=== PATIENT | female | born 1965 | race Caucasian/White ===

== ENCOUNTER 2016-11-30 15:56 | Inpatient (IN) | payer BC ==
[2016-11-30] MEDS ORDERED: Albuterol-Ipratrop 3 mg / 0.5 (3 ml) UD IH STA ×3 (16:10→16:11)
--- NOTE | 2016-11-30 16:39 | RAD ---
HISTORY: cough/sob/copd COMPARISON: 12/10/2014. FINDINGS: LUNGS: The lungs are well inflated and clear. PLEURA: No significant pleural effusion identified, no pneumothorax apparent. CARDIOVASCULAR: Normal. OSSEOUS STRUCTURES: No significant abnormalities. VISUALIZED UPPER ABDOMEN: Normal. OTHER FINDINGS: None. IMPRESSION: No active pulmonary disease.
[2016-11-30 16:50] LABS: BASO # 0.01 K/mm3 (0.0-2.0); BASO % 0.1 % (0.0-3.0); EOS # 0.2 (0.0-0.7); EOS % 2.2 % (1.5-5.0); GRAN # 2.55 (1.4-6.5); GRAN % 32.3 % (50.0-68.0); HEMATOCRIT 37.5 % (36.0-48.0); LYMPH # 4.4 (1.2-3.4); LYMPH % 56.3 % (22.0-35.0); MEAN CELL VOLUME 87.2 fl (80.0-105.0); MEAN CORPUSCULAR HEMOGLOBIN 30.2 pg (25.0-35.0); MEAN CORPUSCULAR HGB CONC 34.7 g/dl (31.0-37.0); MEAN PLATELET VOLUME 8.9 fl (7.0-11.0); MONO # 0.7 (0.1-0.6); MONO % 9.1 % (1.0-6.0); WHITE BLOOD COUNT 7.9 10^3/ul (4.5-11.0)
[2016-11-30 16:52] LABS: ALB/GLOB RATIO 1.9 (1.1-1.8); ALKALINE PHOSPHATASE 87 U/L (38-126); ALT/SGPT 39 U/L (7-56); AST/SGOT 35 U/L (14-36); BILIRUBIN,TOTAL 0.4 mg/dL (0.2-1.3); BLOOD UREA NITROGEN 18 mg/dL (7-21); CALCIUM 8.9 mg/dL (8.4-10.5); CARBON DIOXIDE 26 mmol/L (21-33); CHLORIDE 105 mmol/L (98-107); GFR AFRICAN-AMERICAN > 60; GLUCOSE,RANDOM 79 mg/dL (70-110); LIPASE 113 U/L (23-300); POTASSIUM 4.1 mmol/L (3.6-5.0); SODIUM 142 mmol/L (132-148); TOTAL PROTEIN 6.6 g/dL (5.8-8.3)
[2016-11-30] MEDS ORDERED: Magnesium Sulfate 1 gm in D5W 1 GM/100 ML BAG IVPB ONE (17:09)
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
[2016-11-30] MEDS ORDERED: cefTRIAXone (Rocephin) 1 gm Inj IM STA (21:00)
[2016-11-30] MEDS: MethylPREDNISolone 40 mg Vial IVP SCH (21:55)
[2016-11-30] MEDS ORDERED: Fluticasone-Salmeterol 500-50mcg Diskus IH SCH (22:00)
[2016-11-30] MEDS ORDERED: cefTRIAXone 1 gm 1 GM/100 ML BAG IVPB STA (22:16)
[2016-12-01] MEDS ORDERED: Albuterol-Ipratrop 3 mg / 0.5 (3 ml) UD IH SCH (02:00)
--- NOTE | 2016-12-01 03:59 | CON ---
DATE: 11/30/2016 PULMONARY CONSULT REFERRING PHYSICIAN: Dr. Ramirez. REASON FOR CONSULT: Chronic obstructive lung disease, cough, shortness of breath, ulcer, and epigastric pain. HISTORY OF PRESENT ILLNESS: This is a 51 years old female with a past medical history significant for chronic obstructive lung disease, also history of asthma, chronic pancreatitis, gastritis, hypertension, history of excessive alcohol use, comes into the emergency room with abdominal pain, cough and shortness of breath. Denied any fever. No chills, No hemoptysis. No hematemesis. No hematuria. No diarrhea reported. PAST MEDICAL HISTORY: Chronic obstructive lung disease, chronic pancreatitis, history of C. diff colitis, hypertension, history of excessive alcohol use. ALLERGIES: TO CIPRO AND SHELLFISH. MEDICATIONS: She is on Brovana inhaled twice a day, DuoNeb q. 6 hours p.r.n., Lexapro 30 mg daily, Nicoderm patch daily, Pepcid 40 mg daily, Pulmicort inhale twice a day, Solu-Medrol 40 mg q. 12 hours, Tylenol p.r.n., and Zofran p.r.n. basis. FAMILY HISTORY: Nonsignificant for cardiopulmonary disease reported. SOCIAL HISTORY: Active smoker, excessive alcohol use. REVIEW OF SYSTEMS: No headache. No rhinitis. Has a mild cough and shortness of breath, epigastric pain. No dysuria. No leg pain or leg swelling. PHYSICAL EXAMINATION GENERAL: Lying in the bed, mild distress secondary to abdominal pain. VITAL SIGNS: Temperature is 98, heart rate is 99, respiratory rate is 20, blood pressure is 132/70, and pulse oximetry is 96% on room air. HEENT: Moist mucous membrane. Crowded airway. NECK: Supple. No JVD. LUNGS: Scattered rhonchi. HEART: S1 and S2. ABDOMEN: Positive bowel sounds. Epigastric tenderness. EXTREMITIES: There is no edema. NEUROLOGIC: Awake, alert and follows simple commands. LABORATORY DATA: Shows hemoglobin 13.0, hematocrit 37.5, WBC 7.9, platelet count is 326. INR 0.97, PTT 27. Sodium 142, potassium 4.1, chloride 105, bicarbonate 26, BUN 18, creatinine 0.7, glucose 79, calcium is 8.9, AST is 35, ALT 39, alk phos is 87, albumin is 4.3, lipase 113, TSH 3.79, alcohol level less than 10. Chest x-ray done today shows no active infiltrates. IMPRESSION AND PLAN: Chronic pancreatitis, may have gastritis, chronic obstructive lung disease, history of colitis, hypertension, excessive alcohol use. I spoke to the patient in detail, urged her to stop smoking and stop excessive alcohol use. We will add IV and inhaled bronchodilator. Pain medications, n.p.o. for now. GI consult. Thiamine 100 mg daily, may use Ativan p.r.n. basis, gastric prophylaxis, SCDs to lower extremities. Follow up labs in the morning. Thank you and we will follow with you. Marleny Garcia MD
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
[2016-12-01 04:26] VITALS: BMI 26.6
[2016-12-01 06:33] LABS: HEMATOCRIT 37.9 % (36.0-48.0); MEAN CELL VOLUME 86.7 fl (80.0-105.0); MEAN CORPUSCULAR HEMOGLOBIN 30.2 pg (25.0-35.0); MEAN CORPUSCULAR HGB CONC 34.8 g/dl (31.0-37.0); RED CELL DISTRIBUTION WIDTH 13.8 % (11.5-14.5); WHITE BLOOD COUNT 6.3 10^3/ul (4.5-11.0)
[2016-12-01 06:40] LABS: BLOOD UREA NITROGEN 22 mg/dL (7-21); CALCIUM 9.3 mg/dL (8.4-10.5); CARBON DIOXIDE 25 mmol/L (21-33); CHLORIDE 106 mmol/L (98-107); CHOLESTEROL 175 mg/dL (130-200); GFR AFRICAN-AMERICAN > 60; GLUCOSE,RANDOM 133 mg/dL (70-110); POTASSIUM 4.4 mmol/L (3.6-5.0); SODIUM 141 mmol/L (132-148)
[2016-12-01] MEDS ORDERED: Barium Sulfate Susp 2.1% w/v, 2.0% w/w 450 mL Bottle PO ONE (07:26)
[2016-12-01] MEDS: Budesonide 0.5 mg/2 ml Inhal Susp UD IH SCH ×2 (08:33→19:34)
[2016-12-01] MEDS: Arformoterol 15 mcg/2 ml Inh Sol IH SCH ×2 (08:37→19:35)
[2016-12-01] MEDS: MethylPREDNISolone 40 mg Vial IVP SCH ×2 (09:26→21:41)
[2016-12-01] MEDS: Enoxaparin 30 mg Syringe SC SCH (09:27)
[2016-12-01] MEDS ORDERED: Iohexol 300 100 ML IJ ONE (10:52)
[2016-12-01] MEDS ORDERED: Oxycodone/Acetaminophen 5/325 mg Tab PO ONE (11:20)
--- NOTE | 2016-12-01 12:31 | CT ---
PROCEDURE: CT Abdomen and Pelvis with contrast HISTORY: pancreatitis COMPARISON: None. TECHNIQUE: Contrast dose: 100 cc of Visipaque Radiation dose: Total exam DLP = 311 mGy-cm. This CT exam was performed using one or more of the following dose reduction techniques: Automated exposure control, adjustment of the mA and/or kV according to patient size, and/or use of iterative reconstruction technique. FINDINGS: LOWER THORAX: Unremarkable. LIVER: Unremarkable. No gross lesion or ductal dilatation. GALLBLADDER AND BILE DUCTS: Unremarkable. PANCREAS: Unremarkable. No gross lesion or ductal dilatation. SPLEEN: Unremarkable. ADRENALS: Unremarkable. No mass. KIDNEYS AND URETERS: Unremarkable. No hydronephrosis. No solid mass. VASCULATURE: Unremarkable. No aortic aneurysm. BOWEL: Unremarkable. No obstruction. No gross mural thickening. APPENDIX: Normal appendix. PERITONEUM: Unremarkable. No free fluid. No free air. LYMPH NODES: Unremarkable. No enlarged lymph nodes. BLADDER: Unremarkable. REPRODUCTIVE: Unremarkable. BONES: No acute fracture. OTHER FINDINGS: None. IMPRESSION: No acute findings. No evidence of pancreatitis
--- NOTE | 2016-12-01 15:45 | PN ---
PULMONARY PROGRESS NOTE REFERRING PHYSICIAN: Dr. Ramirez. SUBJECTIVE: The patient is lying in the bed, head at 45 degrees, and night was unremarkable; still have some abdominal pain, requesting Dilaudid for pain. No cough. No sputum production. No leg pain. No leg swelling. OBJECTIVE: GENERAL: In no acute distress. VITAL SIGNS: Temperature is 98, heart rate is 60, respiratory rate is 20, blood pressure 139/80, pulse ox 99% on room air. HEENT: Moist mucous membranes. No oral thrush noted. NECK: Supple. No JVD. LUNGS: Have fair airflow with rhonchi. HEART: S1 and S2. ABDOMEN: Positive bowel sound, soft; has epigastric tenderness. EXTREMITIES: There is no edema. NEUROLOGIC: Awake, alert, and follows simple commands. MEDICATIONS: She is on Brovana 15 mcg inhaled twice a day, Lexapro 30 mg daily, Lovenox 30 mg subQ daily, Nicoderm patch daily, Pepcid 40 mg daily, Pulmicort inhale twice a day, Solu-Medrol 40 mg q. 12 hours, Tylenol p.r.n. basis, vitamin B 100 mg daily, and Zofran p.r.n. basis. LABORATORY DATA: Shows hemoglobin 13.2, hematocrit 37.9, WBC is 6.3, platelet count is 330. Sodium 140, potassium 4.4, chloride 105, bicarbonate 25, BUN 22, creatinine 0.7. Hemoglobin A1c 5.8, calcium is 9.3, triglyceride 59, cholesterol is 175, TSH 0.47. Has a CAT scan of the abdomen and pelvis done which showed no acute finding, no evidence of pancreatitis. IMPRESSION AND PLAN: Chronic obstructive lung disease, history of chronic pancreatitis, may have a gastritis; history of colitis, hypertension, history of alcohol abuse. The patient requesting Dilaudid. Clinically, my feeling is she may be drug seeking behavior. Pulmonary point of view, I will decrease Solu-Medrol; continue inhaled bronchodilator; continue Nicoderm patch; continue thiamine, gastric prophylaxis, SCDs to lower extremities. May need GI consult. Thank you and we will follow up with you. Marleny Garcia MD [facility] # [id number]
--- NOTE | 2016-12-02 02:23 | PN ---
DATE: SUBJECTIVE: The patient is a 51-year-old female. The patient is seen and examined at the bedside, looking comfortable. No nausea, vomiting or diarrhea. Cough is better. Shortness of breath is better. Sometimes complaining about abdominal pain and asking for the Dilaudid for pain. No swelling of the leg. No chest pain. No fever, no chills. PHYSICAL EXAMINATION: VITAL SIGNS: Temperature 98. heart rate 50, respiratory rate 20, blood pressure 137/80, pulse oximetry is 99%. HEENT: Normocephalic, atraumatic. Eyes; PERRLA. Extraocular muscles are intact. Conjunctivae are clear. Mucous membrane moist. Nose is patent. NECK: Supple. No carotid bruits. No JVD or thyromegaly. CHEST: Bilaterally symmetrical. HEART: S1 and S2 positive. LUNGS: Clear to auscultation. ABDOMEN: Soft. Bowel sounds positive. No organomegaly. EXTREMITIES: No edema. No cyanosis. NEUROLOGIC: The patient is awake and alert. Moving all four extremities. No focal deficit. MEDICATIONS: Brovana, Lexapro, Lovenox, Nicoderm, Pepcid, Pulmicort, Solu-Medrol, Tylenol 100, and Zofran. LABORATORY DATA: Hemoglobin 13.2, hematocrit 37.9, white blood cells 6.3, platelets 330. Sodium 140, potassium 4.4, BUN 32, creatinine 0.7, hemoglobin A1c is 5.8. Triglycerides noted . CAT scan of the abdomen and pelvis done, showed no acute findings. No evidence of pancreatitis. ASSESSMENT AND PLAN: Ms. Shanell Del Valle is a 51-year-old female with chronic obstructive lung disease, history of chronic pancreatitis, rule out gastritis, history of colitis, hypertension, history of alcohol abuse. Came in to [facility] as the patient has chronic lung disease, requesting Dilaudid for abdominal pain. CAT scan of the abdomen done, no acute findings. Getting decreasing dose of Solu-Medrol, Nicoderm patch, thiamine, gastric prophylaxis, SCDs to the lower extremities. Follow GI consult with Dr. Cullen to justify Dilaudid for abdominal pain; otherwise, I will stop Dilaudid. We will follow up. Niki Ramirez MD [facility]
--- NOTE | 2016-12-02 05:41 | CON ---
DATE: 12/01/2016 HISTORY OF PRESENT ILLNESS: This patient was seen and evaluated earlier. This 51-year-old patient with a past medical history of COPD, asthma, history of peptic ulcer disease, chronic back pain, history of pancreatitis, history of substance abuse presented with worsening of the shortness of breath and cough for the past 4 weeks. The patient also complaining of the epigastric discomfort during that period. No diarrhea. History of nausea present intermittently. No fever. GI consult was requested to evaluate her abdominal discomfort. Pain mainly in the upper abdominal area. OTHER PAST MEDICAL HISTORY: Significant as above, history of hypertension, status post appendicectomy, tubal ligation. FAMILY HISTORY: Noncontributory. SOCIAL HISTORY: Positive for smoking and alcohol. Positive for substance abuse, heroin in the past. ALLERGIES: THE PATIENT IS ALLERGIC TO CIPRO AND SHELLFISH. REVIEW OF SYSTEMS: Positive as above. Other systems reviewed, negative. PHYSICAL EXAMINATION: GENERAL: The patient is lying on the bed, not in acute distress. VITAL SIGNS: Temperature 98.5, blood pressure 132/67, pulse 80, respirations 20. HEENT: Atraumatic, anicteric. NECK: Supple. HEART: S1 and S2 heard. LUNGS: Bilateral air entry present. Breathing with rhonchi present, scattered. EXTREMITIES: No edema. No cyanosis. NEUROLOGIC: Alert, oriented. Moves all the extremities LABORATORY DATA: Hemoglobin 13.2, hematocrit 39.9, WBC 6.3, platelets 330. Chemistry is essentially unremarkable. The patient had a CT of the abdomen and pelvis done which was reviewed; no acute findings noticed, otherwise. The CT was done. No evidence of pancreatitis noticed. IMPRESSION: This is a 51-year-old patient admitted with exacerbation of chronic obstructive pulmonary disease, asthma, admitted with abdominal pain also, history of multiple admissions in the past on review of the old records, history peptic ulcer disease, and history of pancreatitis in the past. CT did not show any acute pancreatitis at the present time. The differential diagnosis should still include pancreatitis, peptic ulcer disease, erosive esophagitis to be considered. RECOMMENDATIONS: I would recommend; 1. High-dose PPI. 2. Carafate 1 g p.o. q.i.d. 3. We will request for an ultrasound scan of the abdomen to further evaluate. Thank you very much allowing us to participate in the care of the patient. We would suggest further recommendations based on the clinical course. Keshia Cullen MD [facility]
[2016-12-02] MEDS: Arformoterol 15 mcg/2 ml Inh Sol IH SCH ×2 (08:04→20:16)
[2016-12-02] MEDS: Budesonide 0.5 mg/2 ml Inhal Susp UD IH SCH ×2 (08:04→20:16)
[2016-12-02] MEDS: Enoxaparin 30 mg Syringe SC SCH (09:30)
[2016-12-02] MEDS: MethylPREDNISolone 40 mg Vial IVP SCH ×2 (09:31→21:19)
--- NOTE | 2016-12-02 10:28 | CARD ---
APPROVED REPORT EKG Measurement Heart [id number] <Conclusion> Normal sinus rhythm Septal infarct, age undetermined Abnormal ECG
[2016-12-02] MEDS: Sucralfate 1 gm/10 ml Oral Susp UD PO SCH ×4 (10:34→21:41)
--- NOTE | 2016-12-02 13:39 | CP.PCM.PN ---
<Pilar Han - Last Filed: 12/02/16 13:35> Subjective - Date & Time of Evaluation Date of Evaluation: 12/02/16 Time of Evaluation: 10:25 - Subjective Subjective: S&E at bedside this am, respiratory status better but still sob, no cp. C/o abdominal discomfort, no acute distress. Pending abdominal US. No reports of acute overnight events. Objective - Vital Signs/Intake and Output Vital Signs (last 24 hours): Temp Pulse Resp BP Pulse Ox 99 F 65 20 161/91 H 99 12/02/16 11:46 12/02/16 11:46 12/02/16 11:46 12/02/16 11:46 12/02/16 06:00 Intake and Output: 12/02/16 12/02/16 06:59 18:59 Intake Total 120 Output Total 200 Balance -80 - Medications Medications: Current Medications Acetaminophen (Tylenol 325mg Tab) 650 mg PO Q4H PRN PRN Reason: pain fever Arformoterol Tartrate (Brovana) 15 mcg IH [id number] [facility] Last Admin: 12/02/16 08:04 Dose: 15 mcg Budesonide (Pulmicort Respules) 1 mg IH [id number] [facility] Last Admin: 12/02/16 08:04 Dose: 1 mg Enoxaparin Sodium (Lovenox) 30 mg SC DAILY [facility] PRN Reason: Protocol Last Admin: 12/02/16 09:30 Dose: 30 mg Escitalopram Oxalate (Lexapro) 30 mg PO DAILY [facility] Last Admin: 12/02/16 09:33 Dose: 30 mg Famotidine (Pepcid) 40 mg PO HS [facility] Last Admin: 12/01/16 21:42 Dose: 40 mg Methylprednisolone (Solu-Medrol) 20 mg IVP Q12 [facility] Last Admin: 12/02/16 09:31 Dose: 20 mg Nicotine (Nicoderm Cq) 1 patch TD DAILY [facility] Last Admin: 12/02/16 09:31 Dose: 1 patch Pantoprazole Sodium (Protonix Inj) 40 mg IVP Q12 [facility] Last Admin: 12/02/16 10:34 Dose: 40 mg Sucralfate (Carafate Oral Susp) 1 gm PO 0630,1130,1630,2200 [facility] Last Admin: 12/02/16 10:34 Dose: 1 gm Thiamine HCl (Vitamin B1 Tab) 100 mg PO DAILY [facility] Last Admin: 12/02/16 09:33 Dose: 100 mg - Constitutional Appears: No Acute Distress - Head Exam Head Exam: NORMOCEPHALIC - Eye Exam Eye Exam: Normal appearance. absent: Scleral icterus - ENT Exam ENT Exam: Mucous Membranes Moist - Neck Exam Neck Exam: Normal Inspection - Respiratory Exam Respiratory Exam: Decreased Breath Sounds, Rhonchi, Wheezes, NORMAL BREATHING PATTERN. absent: Respiratory Distress - GI/Abdominal Exam GI & Abdominal Exam: Soft, Tenderness, Normal Bowel Sounds. absent: Guarding, Rebound - Extremities Exam Extremities Exam: Normal Capillary Refill. absent: Calf Tenderness, Pedal Edema - Neurological Exam Neurological Exam: Alert, Awake, Oriented x3 - Skin Skin Exam: Dry, Warm Assessment and Plan - Assessment and Plan (Free Text) Assessment: ASSESSMENT: Abdominal pain h/o pancreatitis h/o PUD Exac COPD HTN PLAN: Protonix BID Carafate 1 gm QID Abdominal US diet as tolerated DVT propylaxsis on resp treatment on Solumedrol may benefit from EGD, at this time pulmonary status not optimal, may consider electively at the moment. Will follow. Seen and discussed w/ Dr. Cullen. <Keshia Cullen V - Last Filed: 12/02/16 22:22> Objective - Vital Signs/Intake and Output Vital Signs (last 24 hours): Temp Pulse Resp BP Pulse Ox 98.2 F 63 18 144/76 98 12/02/16 16:00 12/02/16 16:00 12/02/16 16:00 12/02/16 16:00 12/02/16 16:00 Intake and Output: 12/02/16 12/03/16 18:59 06:59 Intake Total 780 Balance 780 - Medications Medications: Current Medications Acetaminophen (Tylenol 325mg Tab) 650 mg PO Q4H PRN PRN Reason: pain fever Arformoterol Tartrate (Brovana) 15 mcg IH [id number] [facility] Last Admin: 12/02/16 20:16 Dose: 15 mcg Budesonide (Pulmicort Respules) 1 mg IH [id number] [facility] Last Admin: 12/02/16 20:16 Dose: 1 mg Enoxaparin Sodium (Lovenox) 30 mg SC DAILY [facility] PRN Reason: Protocol Last Admin: 12/02/16 09:30 Dose: 30 mg Escitalopram Oxalate (Lexapro) 30 mg PO DAILY [facility] Last Admin: 12/02/16 09:33 Dose: 30 mg Methylprednisolone (Solu-Medrol) 20 mg IVP Q12 [facility] Last Admin: 12/02/16 21:19 Dose: 20 mg Nicotine (Nicoderm Cq) 1 patch TD DAILY [facility] Last Admin: 12/02/16 09:31 Dose: 1 patch Pantoprazole Sodium (Protonix Inj) 40 mg IVP Q12 [facility] Last Admin: 12/02/16 21:18 Dose: 40 mg Sucralfate (Carafate Oral Susp) 1 gm PO 0630,1130,1630,2200 [facility] Last Admin: 12/02/16 21:41 Dose: Not Given Thiamine HCl (Vitamin B1 Tab) 100 mg PO DAILY [facility] Last Admin: 12/02/16 09:33 Dose: 100 mg Attending/Attestation - Attestation I have personally seen and examined this patient.: Yes I have fully participated in the care of the patient.: Yes I have reviewed all pertinent clinical information, including history, physical exam and plan: Yes Notes (Text): This is an addendum to GI progress report dictated by Pilar Han APN.The patient was seen and examined earlier. Medical records, lab studies, imagings were reviewed. Last 24 hours events reviewed. Agreed with the above treatment plan as outlined in Pilar Han APN's notes the with the addition of the following sstill complains of abdominal pain on examination tenderness in the epigastric area Follow-up the sonogram Continue PPI 12/02/16 22:21
--- NOTE | 2016-12-02 15:17 | US ---
HISTORY: Abdominal pain COMPARISON: CT abdomen and pelvis performed on 12/01/2016 TECHNIQUE: Grayscale imaging was performed. FINDINGS: LIVER: Measures 13.4 cm. Normal echogenicity of the liver parenchyma. There is a 9 x 8 x 6 mm septated cyst in the right hepatic lobe. No intrahepatic bile duct dilatation. GALLBLADDER: There are no gallstones, wall thickening or pericholecystic fluid. The sonographic Hightower's sign 9 COMMON BILE DUCT: Measures 5.0 mm. No stones. No dilatation. PANCREAS: Unremarkable as visualized. No mass. No ductal dilatation. RIGHT KIDNEY: Measures 10.4cm. Normal echogenicity. No calculus, mass, or hydronephrosis. LEFT KIDNEY: Measures 10.7cm. Normal echogenicity. No calculus, mass, or hydronephrosis. SPLEEN: Normal in size and contour. No mass. AORTA: No aneurysmal dilatation. IVC: Unremarkable. OTHER FINDINGS: None. IMPRESSION: 9 mm septated cyst in the right hepatic lobe. No cholelithiasis, nephrolithiasis or biliary dilatation.
[2016-12-02] MEDS ORDERED: Oxycodone/Acetaminophen 5/325 mg Tab PO ONE (20:31)
--- NOTE | 2016-12-02 20:31 | CP.PCM.PN ---
Subjective - Date & Time of Evaluation Date of Evaluation: 12/02/16 Time of Evaluation: 20:16 - Subjective Subjective: Patient seen at the request of his RN for her c/o abdominal pain. She denies c/o nausea,vomiting,chest pain,calf pain, SOB,fever or chills. Currently being treated for COPD. VS stable PMH:HTN,COPD,history of PUD,Pancreatitis. PSH: laparoscopy for ruptured appendix. Objective - Vital Signs/Intake and Output Vital Signs (last 24 hours): Temp Pulse Resp BP Pulse Ox 98.2 F 63 18 144/76 98 12/02/16 16:00 12/02/16 16:00 12/02/16 16:00 12/02/16 16:00 12/02/16 16:00 - Medications Medications: Current Medications Acetaminophen (Tylenol 325mg Tab) 650 mg PO Q4H PRN PRN Reason: pain fever Arformoterol Tartrate (Brovana) 15 mcg IH [id number] [facility] Last Admin: 12/02/16 08:04 Dose: 15 mcg Budesonide (Pulmicort Respules) 1 mg IH [id number] [facility] Last Admin: 12/02/16 08:04 Dose: 1 mg Enoxaparin Sodium (Lovenox) 30 mg SC DAILY [facility] PRN Reason: Protocol Last Admin: 12/02/16 09:30 Dose: 30 mg Escitalopram Oxalate (Lexapro) 30 mg PO DAILY [facility] Last Admin: 12/02/16 09:33 Dose: 30 mg Methylprednisolone (Solu-Medrol) 20 mg IVP Q12 [facility] Last Admin: 12/02/16 09:31 Dose: 20 mg Nicotine (Nicoderm Cq) 1 patch TD DAILY [facility] Last Admin: 12/02/16 09:31 Dose: 1 patch Pantoprazole Sodium (Protonix Inj) 40 mg IVP Q12 [facility] Last Admin: 12/02/16 10:34 Dose: 40 mg Sucralfate (Carafate Oral Susp) 1 gm PO 0630,1130,1630,2200 [facility] Last Admin: 12/02/16 17:45 Dose: 1 gm Thiamine HCl (Vitamin B1 Tab) 100 mg PO DAILY [facility] Last Admin: 12/02/16 09:33 Dose: 100 mg - Constitutional Appears: No Acute Distress - Head Exam Head Exam: ATRAUMATIC, NORMAL INSPECTION, NORMOCEPHALIC - Eye Exam Eye Exam: Normal appearance - ENT Exam ENT Exam: Mucous Membranes Moist - Neck Exam Neck Exam: Normal Inspection - Respiratory Exam Respiratory Exam: Clear to Ausculation Bilateral, NORMAL BREATHING PATTERN - Cardiovascular Exam Cardiovascular Exam: REGULAR RHYTHM - GI/Abdominal Exam GI & Abdominal Exam: Soft, Tenderness (mild diffuse tenderness ,no guarding or rebound.) Additional comments: Old surgical scar is noted around umbilical region - Extremities Exam Extremities Exam: Normal Inspection. absent: Calf Tenderness - Neurological Exam Neurological Exam: Alert, Awake, Oriented x3 - Psychiatric Exam Psychiatric exam: Normal Affect - Skin Skin Exam: Dry, Warm Assessment and Plan - Assessment and Plan (Free Text) Assessment: Abdominal pain Plan: Abdominal ultrasound was report noted.Pt has a hepatic cyst. Pain may be due to PUD,or adhesions secondary to surgery for ruptured Appendix in the past. Patient is already on Protonix and Carafate. Will order 1 dose of Percocet 5/ 325 for now.
[2016-12-03 01:31] VITALS: RESP 20
--- NOTE | 2016-12-03 03:46 | PN ---
PULMONARY PROGRESS NOTE DATE: 12/02/2016 REFERRING PHYSICIAN: Niki Ramirez MD SUBJECTIVE: The patient is lying in the bed, head at 45 degrees. Breathing is better. Decreased cough and shortness of breath. Still has some abdominal pain. No dysuria. No leg pain. No leg swelling. OBJECTIVE: GENERAL: In no acute distress. VITAL SIGNS: Temperature is 98, heart rate is 63, respiratory rate is 20, blood pressure 144/76, pulse ox 98% on room air. HEENT: Moist mucous membranes. Crowded airway. NECK: Supple. No JVD. LUNGS: Have fair airflow with rhonchi. HEART: S1 and S2. ABDOMEN: Positive bowel sound. Positive epigastric pain. EXTREMITIES: There is no edema. NEUROLOGIC: Awake, alert. Follow simple command. MEDICATIONS: She is on Brovana 15 mcg inhaled q. 12 hours, Carafate 1 g q.i.d., Lexapro 30 mg daily, Lovenox 30 mg daily, Nicoderm patch daily, Protonix 40 mg q. 12 hours, Pulmicort inhale twice a day, Solu-Medrol 20 mg q. 12 hours, Tylenol p.r.n., vitamin B 100 mg daily. LABORATORY DATA: Reviewed. No new lab is available since yesterday. Blood culture has been negative. Has abdominal ultrasound done, which shows 9 mm septated cyst in the right hepatic lobe. No cholelithiasis, nephrolithiasis, or biliary dilatation reported. IMPRESSION AND PLAN: Chronic obstructive lung disease, history of chronic pancreatitis, gastritis, colitis, hypertension, history of alcohol abuse. Pulmonary point of view, she is doing okay. Continue IV and inhaled bronchodilator. Gastroenterology followup. The patient urged to stop smoking and also urged to stop excessive alcohol use. Thank you and we will follow up with you. Marleny Garcia MD
--- NOTE | 2016-12-03 04:12 | PN ---
DATE: SUBJECTIVE: The patient is a 51-year-old female. The patient is seen and examined at the bedside, looking comfortable. No nausea, vomiting or diarrhea. No hematuria or hematochezia. No headache. No dizziness. No chest pain. No palpitation. No reports of acute overnight event. In the late evening, the patient was complaining about abdominal pain, seen by house physician, was given Percocet. GI is on the case. PHYSICAL EXAMINATION: VITAL SIGNS: Temperature 99, pulse 85, respiratory rate is 20, blood pressure 160/90, pulse oximetry of 99. HEENT: Head; normocephalic and atraumatic. Eyes; PERRLA. Extraocular muscles intact. Conjunctivae clear. Nose patent. Mucous membranes moist. NECK: Supple. No carotid bruits. No JVD or thyromegaly. CHEST: Bilaterally symmetrical. HEART: S1 and S2 positive. LUNGS: Clear to auscultation. ABDOMEN: Soft. Bowel sounds present. No organomegaly. EXTREMITIES: No edema. No cyanosis. NEUROLOGICAL: The patient is awake and alert. Moving all 4 extremities. No focal deficits. MEDICATIONS: Brovana, Pulmicort, Lovenox, Lexapro, Pepcid, Solu-Medrol, Nicoderm, Protonix, Carafate and vitamin B1. LABORATORY DATA: White blood cells 6.3, hemoglobin 13.2, hematocrit 37.5, and platelets 330. Sodium 141, potassium 4.4, BUN 22, creatinine 0.7, and glucose 133. Hemoglobin A1c is 5.8. HDL 84. ASSESSMENT AND PLAN: Ms. 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 No overnight event reported. Still complaining of abdominal pain once in a while. History of pancreatitis, peptic ulcer disease, exacerbation of chronic obstructive pulmonary disease and hypertension. The patient is getting Protonix b.i.d. and Carafate. Went for abdominal ultrasound. Diet as tolerated. Deep venous thrombosis prophylaxis, on respiratory treatment. Getting Solu-Medrol tapering dose. May benefit from EGD at this time as per Gastroenterology. Appreciate Gastroenterology's input. Abdominal ultrasound showed a 9 mm subtle cyst in the right hepatic lobe. No cholelithiasis, nephrolithiasis or biliary dilatation. Gastrointestinal and deep venous thrombosis prophylaxis. Repeat labs. We will follow. Niki Ramirez MD MTDShalini
[2016-12-03] MEDS: Sucralfate 1 gm/10 ml Oral Susp UD PO SCH ×4 (05:44→22:39)
[2016-12-03] MEDS: Arformoterol 15 mcg/2 ml Inh Sol IH SCH ×2 (07:17→20:13)
[2016-12-03] MEDS: Budesonide 0.5 mg/2 ml Inhal Susp UD IH SCH ×2 (07:17→20:13)
--- NOTE | 2016-12-03 09:29 | CP.PCM.CON ---
History of Present Illness - History of Present Illness History of Present Illness: Surgery Patient is a 51 y/o female with a past medical history of alcoholic pancreatitis, GERD, PUD, and chronic abdominal pain, who was admitted for an asthma exacerbation. Surgery was consulted for abdominal pain. Pain is localized to the mid to LUQ, sharp and constant in nature. Associated with N/D. Last BM was today, loose and brown. No blood. Pt reports she was constipated before. Pain is chronic and she is being seen by GI. Denies F/C/CP. PSH: Ex lap, appendectomy, tubal ligation, PMH: Pancreatitis, PUD, gastritis, Asthma, COPD, substance abuse. Review of Systems - Review of Systems Review of Systems: General: Positive Chills, No fevers, night sweats. Cardiovascular: No chest pain, palpitations Respiratory: Positive SOB, Wheezing. Extremities: No edema, pain, Past Patient History - Infectious Disease Hx of Infectious Diseases: None - Tetanus Immunizations Tetanus Immunization: Unknown - Past Medical History & Family History Past Medical History?: Yes - Past Social History Smoking Status: Heavy Smoker > 10 Cigarettes Daily Alcohol: Social Drugs: Denies - CARDIAC Hx Hypertension: Yes - PULMONARY Hx Respiratory Disorders: Yes Hx Asthma: Yes Hx Chronic Obstructive Pulmonary Disease (COPD): Yes - NEUROLOGICAL Hx Dizziness: Yes Hx Migraine: Yes - HEENT Hx HEENT Problems: Yes (wears eyeglasses) - RENAL Hx Chronic Kidney Disease: No - ENDOCRINE/METABOLIC Hx Endocrine Disorders: No - HEMATOLOGICAL/ONCOLOGICAL Hx Blood Disorders: No - INTEGUMENTARY Hx Dermatological Problems: No - MUSCULOSKELETAL/RHEUMATOLOGICAL Hx Musculoskeletal Disorders: Yes Hx Degenerative Joint Disease: Yes Hx Herniated Disk: Yes Hx Unsteady Gait: Yes - GASTROINTESTINAL Hx Gastrointestinal Disorders: Yes Hx Constipation: Yes Hx Pancreatitis: Yes (alcoholic) Hx Ulcer: Yes - GENITOURINARY/GYNECOLOGICAL Hx Genitourinary Disorders: No Other/Comment: postmenopausal - PSYCHIATRIC Hx Depression: Yes Hx Substance Use: Yes - SURGICAL HISTORY Hx Surgeries: Yes Hx Appendectomy: Yes Hx Tonsillectomy: Yes Other/Comment: rhinoplasty, breast augmentation - ANESTHESIA Hx Anesthesia: Yes Hx Anesthesia Reactions: No Hx Malignant Hyperthermia: No Meds Allergies/Adverse Reactions: Allergies Allergy/AdvReac Type Severity Reaction Status Date / Time ciprofloxacin [From Cipro] Allergy ANAPHYLAXIS Verified 11/30/16 16:05 shellfish derived Allergy ANAPHYLAXIS Verified 11/30/16 16:05 - Medications Medications: Current Medications Acetaminophen (Tylenol 325mg Tab) 650 mg PO Q4H PRN PRN Reason: pain fever Arformoterol Tartrate (Brovana) 15 mcg IH [id number] [facility] Last Admin: 12/03/16 07:17 Dose: 15 mcg Budesonide (Pulmicort Respules) 1 mg IH [id number] [facility] Last Admin: 12/03/16 07:17 Dose: 1 mg Enoxaparin Sodium (Lovenox) 30 mg SC DAILY [facility] PRN Reason: Protocol Last Admin: 12/02/16 09:30 Dose: 30 mg Escitalopram Oxalate (Lexapro) 30 mg PO DAILY [facility] Last Admin: 12/02/16 09:33 Dose: 30 mg Methylprednisolone (Solu-Medrol) 20 mg IVP Q12 [facility] Last Admin: 12/02/16 21:19 Dose: 20 mg Nicotine (Nicoderm Cq) 1 patch TD DAILY [facility] Last Admin: 12/02/16 09:31 Dose: 1 patch Oxycodone/Acetaminophen (Percocet 5/325 Mg Tab) 1 tab PO DAILY [facility] Stop: 12/06/16 10:01 Pantoprazole Sodium (Protonix Inj) 40 mg IVP Q12 [facility] Last Admin: 12/02/16 21:18 Dose: 40 mg Sucralfate (Carafate Oral Susp) 1 gm PO 0630,1130,1630,2200 [facility] Last Admin: 12/03/16 05:44 Dose: Not Given Thiamine HCl (Vitamin B1 Tab) 100 mg PO DAILY [facility] Last Admin: 12/02/16 09:33 Dose: 100 mg Physical Exam - Constitutional Appears: Non-toxic, No Acute Distress - Head Exam Head Exam: ATRAUMATIC, NORMOCEPHALIC - Eye Exam Eye Exam: EOMI. absent: Conjunctival injection - Neck Exam Neck exam: Positive for: Full Rom. Negative for: Tenderness, Thyromegaly - Respiratory Exam Respiratory Exam: Wheezes. absent: Chest Wall Tenderness Additional comments: min wheezing at bases - Cardiovascular Exam Cardiovascular Exam: REGULAR RHYTHM, RRR - GI/Abdominal Exam GI & Abdominal Exam: Normal Bowel Sounds, Organomegaly (hepatomegaly), Soft, Tenderness (mid-LUQ). absent: Distended, Firm, Rebound, Rigid - Rectal Exam Rectal Exam: Deferred - Extremities Exam Extremities exam: Positive for: full ROM. Negative for: calf tenderness, pedal edema, tenderness - Neurological Exam Neurological exam: Alert, Oriented x3 - Psychiatric Exam Psychiatric exam: Normal Affect - Skin Skin Exam: Normal Color, Warm Results - Vital Signs Recent Vital Signs: Last Vital Signs Temp 97.8 F 12/03/16 07:30 Pulse 57 L 12/03/16 07:30 Resp 20 12/03/16 07:30 BP 127/72 12/03/16 07:30 Pulse Ox 100 12/03/16 07:30 - Labs Result Diagrams: 12/01/16 06:15 12/01/16 06:15 Assessment & Plan - Assessment and Plan (Free Text) Assessment: 51F with chronic abdominal pain likely due to gastritis Plan: - pain control - anti-nausea, anti-emetics - recommendations from GI - medical management per primary -No emergent sx intervention needed at this time discuss with Dr. Stock
[2016-12-03] MEDS ORDERED: Oxycodone/Acetaminophen 5/325 mg Tab PO SCH (10:00)
[2016-12-03] MEDS: Morphine 2 mg/ml ISec IVP PRN ×3 (10:02→20:26)
[2016-12-03] MEDS: Enoxaparin 30 mg Syringe SC SCH (10:02)
[2016-12-03] MEDS: MethylPREDNISolone 40 mg Vial IVP SCH ×2 (10:04→22:39)
--- NOTE | 2016-12-03 11:06 | MRI ---
PROCEDURE: MR THORACIC SPINE WITHOUT CONTRAST HISTORY: Back Pain COMPARISON: None available. TECHNIQUE: Multiecho multiplanar sequences were performed through the thoracic spine without the use of intravenous contrast. FINDINGS: ALIGNMENT: Normal thoracic spinal alignment. Normal thoracic kyphosis. VERTEBRA: There is a mild compression fracture of T3 which appears to be chronic. There is no marrow edema MARROW: Marrow signal unremarkable. PARASPINAL SOFT TISSUES: Unremarkable. CORD: Unremarkable thoracic cord. No volume loss, signal abnormality or syrinx. DISCS: No disc herniation, spinal canal stenosis, or neuroforaminal narrowing. OTHER FINDINGS: None. IMPRESSION: Unremarkable non-contrast enhanced MRI of the thoracic spine
--- NOTE | 2016-12-03 11:20 | MRI ---
PROCEDURE: MR LUMBAR SPINE WITHOUT CONTRAST HISTORY: Back pain COMPARISON: None available. TECHNIQUE: Multiecho multiplanar sequences were performed through the lumbar spine without the use of intravenous contrast. FINDINGS: Normal lumbar lordosis. Vertebral body heights are preserved. Marrow signal unremarkable. Conus medullaris unremarkable at the level of T12 Paraspinal soft tissues are unremarkable. T12-L1: No disc herniation, spinal canal stenosis or neural foraminal narrowing. L1-2: No disc herniation, spinal canal stenosis or neural foraminal narrowing. L2-3: No disc herniation, spinal canal stenosis or neural foraminal narrowing. L3-4: No disc herniation, spinal canal stenosis or neural foraminal narrowing. L4-5: Mild disc degeneration and mild facet arthropathy L5-S1: There is severe facet arthropathy without significant foraminal or central stenosis. OTHER FINDINGS: None. IMPRESSION: L4-5. Mild disc degeneration and mild facet arthropathy. L5-S1. Severe facet arthropathy without significant foraminal or central stenosis
[2016-12-03] MEDS ORDERED: Oxycodone/Acetaminophen 5/325 mg Tab PO PRN (15:46)
[2016-12-04] MEDS: Morphine 2 mg/ml ISec IVP PRN ×5 (02:13→19:39)
--- NOTE | 2016-12-04 06:04 | PN ---
DATE: 12/03/2016 SUBJECTIVE: This patient was seen and evaluated earlier today. The patient feels much better. Her breathing also has improved. PHYSICAL EXAMINATION VITAL SIGNS: Temperature is 99.4, pulse 62, and blood pressure 143/80. HEENT: Atraumatic, anicteric. NECK: Supple. HEART: S1 and S2 heard. LUNGS: Bilateral air entry present, occasional rhonchi present. ABDOMEN: Soft. There is tenderness present in the epigastric area. EXTREMITIES: No cyanosis. No clubbing. NEUROLOGIC: Alert and oriented. Moves all the extremities. The patient IMPRESSION: This 51-year-old patient admitted with chronic obstructive pulmonary disease, asthma exacerbation, also complaining of epigastric pain and also back pain. The patient has a history of peptic ulcer disease, history of pancreatitis, history of smoking, alcohol use. The etiology for abdominal pain should include peptic ulcer disease, pancreatitis, gastroesophageal reflux disease and also neoplasia to be considered. The patient was admitted with significant worsening of the chronic obstructive pulmonary disease, asthma, which is slowly clinically improving. The present plan is to continue the PPI. The patient would benefit from elective EGD, endoscopic evaluation. This was explained to the patient at length who understands. The patient was advised to follow up with the primary physician and also podiatry teacher as planned and to have this test arranged. We will discuss with Dr. Ramirez. Thank you very much for allowing us to participate in the care of the patient. Keshia Cullen MD MTDShalini
[2016-12-04] MEDS: Sucralfate 1 gm/10 ml Oral Susp UD PO SCH ×4 (07:35→21:47)
[2016-12-04] MEDS: Arformoterol 15 mcg/2 ml Inh Sol IH SCH ×2 (09:35→20:01)
[2016-12-04] MEDS: Budesonide 0.5 mg/2 ml Inhal Susp UD IH SCH ×2 (09:35→20:01)
[2016-12-04] MEDS: Enoxaparin 30 mg Syringe SC SCH (09:45)
[2016-12-04] MEDS: MethylPREDNISolone 40 mg Vial IVP SCH ×2 (09:45→21:47)
--- NOTE | 2016-12-04 10:14 | CP.PCM.PN ---
Subjective - Date & Time of Evaluation Date of Evaluation: 12/04/16 Time of Evaluation: 08:00 - Subjective Subjective: Surgery Progress note. Dr. Stock Pt seen and examined at bedside. No acute events overnight. Still reports mild epigastric pain. No N/V/D. No CP/SOB. No F/C. No new complaints. Objective - Vital Signs/Intake and Output Vital Signs (last 24 hours): Temp Pulse Resp BP Pulse Ox 97.6 F 52 L 20 145/84 99 12/04/16 08:00 12/04/16 08:00 12/04/16 08:00 12/04/16 08:00 12/04/16 08:00 Intake and Output: 12/04/16 12/04/16 06:59 18:59 Intake Total 880 Balance 880 - Medications Medications: Current Medications Acetaminophen (Tylenol 325mg Tab) 650 mg PO Q4H PRN PRN Reason: pain fever Arformoterol Tartrate (Brovana) 15 mcg IH [id number] [facility] Last Admin: 12/04/16 09:35 Dose: 15 mcg Budesonide (Pulmicort Respules) 1 mg IH [id number] [facility] Last Admin: 12/04/16 09:35 Dose: 1 mg Enoxaparin Sodium (Lovenox) 30 mg SC DAILY [facility] PRN Reason: Protocol Last Admin: 12/04/16 09:45 Dose: 30 mg Escitalopram Oxalate (Lexapro) 30 mg PO DAILY [facility] Last Admin: 12/04/16 09:45 Dose: 30 mg Methylprednisolone (Solu-Medrol) 20 mg IVP Q12 [facility] Last Admin: 12/04/16 09:45 Dose: 20 mg Morphine Sulfate (Morphine) 2 mg IVP Q4H PRN PRN Reason: Pain, severe (8-10) Last Admin: 12/04/16 09:42 Dose: 2 mg Nicotine (Nicoderm Cq) 1 patch TD DAILY [facility] Last Admin: 12/04/16 10:03 Dose: 1 patch Oxycodone/Acetaminophen (Percocet 5/325 Mg Tab) 1 tab PO DAILY PRN PRN Reason: Pain, severe (8-10) Stop: 12/06/16 10:01 Pantoprazole Sodium (Protonix Inj) 40 mg IVP Q12 [facility] Last Admin: 12/04/16 09:44 Dose: 40 mg Sucralfate (Carafate Oral Susp) 1 gm PO 0630,1130,1630,2200 [facility] Last Admin: 12/04/16 07:35 Dose: Not Given Thiamine HCl (Vitamin B1 Tab) 100 mg PO DAILY [facility] Last Admin: 12/04/16 09:45 Dose: 100 mg - Constitutional Appears: Well, No Acute Distress - Head Exam Head Exam: ATRAUMATIC, NORMAL INSPECTION, NORMOCEPHALIC - Eye Exam Eye Exam: EOMI, Normal appearance - ENT Exam ENT Exam: Mucous Membranes Moist, Normal Exam - Neck Exam Neck Exam: Full ROM, Normal Inspection - Respiratory Exam Respiratory Exam: NORMAL BREATHING PATTERN. absent: Decreased Breath Sounds, Rales, Rhonchi, Wheezes, Respiratory Distress - Cardiovascular Exam Cardiovascular Exam: RRR, +S1, +S2. absent: JVD - GI/Abdominal Exam GI & Abdominal Exam: Soft Additional comments: Mild RUQ/Epigastric tenderness. Soft, non distended. No Hightower's. No Rebound, No guarding. - Extremities Exam Extremities Exam: Normal Inspection. absent: Calf Tenderness - Neurological Exam Neurological Exam: Alert, Awake, Oriented x3 - Psychiatric Exam Psychiatric exam: Normal Affect, Normal Mood - Skin Skin Exam: Dry, Intact, Normal Color, Warm Assessment and Plan - Assessment and Plan (Free Text) Assessment: 51yo F with chronic abdominal pain. Consider secondary to gastritis - Pain management - Protonix/Carafate - f/u GI recs - No plans for any acute surgical intervention at this time. Please re-consult as necessary. Further recs as per Dr. Montrell Holland PGY1 Surgery Pager: [phone]
--- NOTE | 2016-12-04 20:29 | PN ---
DATE: 12/04/2016 SUBJECTIVE: This patient was seen and evaluated earlier today. The patient is feeling much better. Respiratory status feels much improving. Still complains of some epigastric discomfort. PHYSICAL EXAMINATION: VITAL SIGNS: Temperature 98.1, pulse is 70, blood pressure 137/82, respirations 20 and O2 saturation is 95%. HEENT: Atraumatic. Anicteric. NECK: Supple. HEART: S1 and S2 heard. LUNGS: Bilateral air entry present. ABDOMEN: Soft. There is tenderness present at the epigastric area. EXTREMITIES: No cyanosis. No clubbing. No edema. LABORATORY DATA: No recent labs now. IMPRESSION: This is a 51-year-old patient admitted with acute exacerbation of chronic obstructive pulmonary disease and asthma, also has an epigastric discomfort, history of peptic ulcer disease, history of pancreatitis in the past and history of smoker and substance abuse in the past. Clinically, the patient has significant wheezing and the patient was not considered for endoscopic evaluation initially, but accepted further optimization. The patient had ultrasound scan of the abdomen done, showed only septated cyst which is measuring about only 9 x 8 mm area. Gallbladder shows no gallstones. Common bile duct was normal. RECOMMENDATION: This is a 51-year-old patient. The differential diagnoses should include peptic ulcer disease, cholangitis, chronic pancreatitis and also neoplasia to be considered. The present plan is to consider optimizing respiratory status, continue the PPI. The patient would need elective EGD and colonoscopy. This was explained to the patient at length who understands. Thank you very much for allowing me to participate in the care of the patient. The patient would benefit. The patient was clearly told about the importance of having a followup with a psychiatric specialist as an outpatient. Keshia Cullen MD MTDShalini
--- NOTE | 2016-12-04 22:57 | PN ---
PULMONARY PROGRESS NOTE DATE: 12/04/2016 REFERRING PHYSICIAN: Dr. Ramirez. SUBJECTIVE: The patient is lying in the bed. Night was unremarkable, feels better. No headache. No rhinitis. No shortness of breath. Spine pain is better. Mild abdominal pain. No leg pain or leg swelling. PHYSICAL EXAMINATION GENERAL: In no acute distress. VITAL SIGNS: Temperature is 98, heart rate is 70, respiratory rate is 20, blood pressure 137/82 and pulse ox 98% on room air. HEENT: Moist mucous membranes. No oral thrush noted. NECK: Supple. No JVD. LUNGS: Has a fair airflow with rhonchi. HEART: S1 and S2. ABDOMEN: Soft and mild tenderness in the epigastric area. EXTREMITIES: There is no edema. NEUROLOGIC: Awake, alert and follows simple commands. MEDICATIONS: She is on Brovana 15 mcg inhaled twice a day, Carafate 1 g q.i.d., Lexapro 30 mg daily, Lovenox 30 mg subq daily, morphine 2 mg q.4 hours p.r.n., Nicoderm patch daily, Percocet 5/325 one tablet p.o. daily p.r.n., Protonix 40 mg q.12 hours, budesonide inhaled twice a day, Solu-Medrol 20 mg q.12 hours, Tylenol p.r.n. and vitamin B 100 mg daily. LABORATORY DATA: Reviewed. No new lab is available since yesterday. Microbiology blood culture has been negative. MRI of thoracic spine and lumbar spine is nondiagnostic. IMPRESSION AND PLAN: Chronic obstructive lung disease, history of chronic pancreatitis, gastritis, colitis, hypertension and history of alcohol abuse. Pulmonary point of view if she is doing okay, may discontinue Solu-Medrol. Place her on 10 mg prednisone for next 3 to 4 days. The patient has to stop smoking. She should have a gastroenterology followup for endoscopy as an outpatient and also should have pulmonary function test as an outpatient. Thank you and we will follow with you. Marleny Garcia MD
[2016-12-05 02:05] VITALS: PULSE 55
--- NOTE | 2016-12-05 02:08 | PN ---
DATE: SUBJECTIVE: The patient is a 51-year-old female. The patient is seen and examined on the bedside, looking comfortable, still complaining about back pain, was going towards the stomach. Night was unremarkable. Feels better. No headache. No rhinitis. No shortness of breath. No swelling of the leg. PHYSICAL EXAMINATION: VITAL SIGNS: Temperature is 98, heart rate 70, respiratory rate 20, blood pressure 137/82, pulse oximetry 98% on room air. HEENT: Head is normocephalic and atraumatic. Eyes, PERRLA. Extraocular muscles intact. Conjunctivae clear. Nose is patent. Mucous membrane moist. NECK: Supple. No carotid bruits. No JVD or thyromegaly. CHEST: Bilaterally symmetrical. HEART: S1 and S2 positive. LUNGS: Clear to auscultation. ABDOMEN: Soft. Bowel sounds positive. No organomegaly. EXTREMITIES: No edema. No cyanosis. NEUROLOGIC: The patient is awake and alert. Moving all 4 extremities. No focal deficits. LABORATORY DATA: We do not have recent lab today, but I reviewed old labs. MEDICATIONS: Brovana, Carafate, Lexapro, Lovenox, morphine, Nicoderm patch, Percocet, Protonix, Solu-Medrol, Tylenol and vitamin B 100. ASSESSMENT AND PLAN: Ms. Shanell Del Valle is a 51-year-old female with chronic obstructive lung disease, history of chronic pancreatitis, gastritis, colitis, hypertension, history of alcohol abuse, chronic back pain, stenosis. Getting tapering dose of Solu-Medrol. Dr. Garcia discontinued Solu-Medrol, started on prednisone. Urged to quit smoking. Urged to quit drinking. Length of time discussion done with the patient. Gastrointestinal and deep venous thrombosis prophylaxis. Need endoscopy as per Gastroenterology as outpatient. Reviewed Dr. Garcia's note and Dr. Cullen's note. We will followup. Niki Ramirez MD
[2016-12-05] MEDS: Morphine 2 mg/ml ISec IVP PRN (04:01)
[2016-12-05] MEDS: Sucralfate 1 gm/10 ml Oral Susp UD PO SCH (05:50)
[2016-12-05 07:47] VITALS: BP 124/75; TEMP 97.9; O2SAT 97
[2016-12-05] MEDS: Arformoterol 15 mcg/2 ml Inh Sol IH SCH (09:40)
[2016-12-05] MEDS: Budesonide 0.5 mg/2 ml Inhal Susp UD IH SCH (09:40)
[2016-12-05] MEDS: MethylPREDNISolone 40 mg Vial IVP SCH (10:21)
[2016-12-05] MEDS: Enoxaparin 30 mg Syringe SC SCH (10:21)
--- NOTE | 2016-12-05 20:02 | PN ---
DATE: 12/05/2016 SUBJECTIVE: This patient was seen and evaluated earlier today. The patient has been doing much better. Breathing has much improved. PHYSICAL EXAMINATION: VITAL SIGNS: Remains afebrile, but temperature is 97.9, pulse 55, blood pressure 124/75, respirations 20 and O2 saturation is 97%. HEENT: Atraumatic. Anicteric. NECK: Supple. HEART: S1 and S2 heard. LUNGS: Bilateral air entry present. Few scattered rhonchi, much improved. ABDOMEN: Soft. There is mild tenderness present at the epigastric area. EXTREMITIES: No edema. No cyanosis. LABORATORY DATA: No recent labs today. IMPRESSION: Chronic obstructive pulmonary disease, asthma, and exacerbation. The patient has chronic epigastric pain. The patient would benefit from upper gastrointestinal endoscopy as an outpatient evaluation. Meanwhile, the patient was advised to continue the PPI. This was clearly explained to the patient who understands. Thank you very much for allowing me to participate in the care of the patient. Keshia Cullen MD
--- NOTE | 2016-12-06 08:33 | DS ---
CHIEF COMPLAINT: Shortness of breath. HISTORY OF PRESENT ILLNESS: Ms. Shanell Del Valle is a 51-year-old lady with history of asthma, COPD came to the emergency room with intermittent shortness of breath, coughing over the past 4 days. She was using nebulizer at home without improvement in her symptoms. Denies chest pain. She was wheezing. No fever. No chills. Actually, the patient wanted to see her primary care physician, got prescription, but do not have money to buy the all medications, got some, was not working, came to hospital with complaints. We admitted the patient, did CAT scan of abdomen and pelvis. Abdominal ultrasound, thoracic spine, lumbar spine, seen by Dr. Cullen, GI; Dr. Garcia, Pulmonary; even Dr. Mukund Stock was called because of abdominal pain. Seen by Dr. Shawna Mathis house physician and Dr. Spicer. The patient got better. MRI of thoracic, lumbar and CAT scan reviewed. Discussion done with Dr. Cullen and cleared by Dr. Cullen with followup endoscopy as outpatient. Prescription of the medication given by me. Tapering dose of prednisone, 5 tablets of Percocet, inhalers, and Nexium. PAST MEDICAL HISTORY: Hypertension, asthma, COPD, back pain, falls, herniated disk, colitis, gastritis, pancreatitis, history of nausea, vomiting, history of substance abuse, appendectomy, and tubal ligation. FAMILY HISTORY: Father and mother noncontributory. HABITS: According to the patient, she is smoking, light smoker less than 10 cigarette a day. Alcohol yes. Substance abuse yes. Heroin. ALLERGIES: THE PATIENT IS ALLERGIC TO CIPROFLOXACIN AND SHELLFISH. HOME MEDICATIONS: Advair. REVIEW OF SYSTEMS: The patient is seen and examined at the bedside, looking comfortable, still having abdominal pain,nausea, vomiting, diarrhea. No hematuria or hematochezia. No headache. No dizziness. No chest pain. No palpitation. No fever. No chills. Doing much better. Breathing is better. PHYSICAL EXAMINATION: VITAL SIGNS: Temperature 97.9, pulse 55, blood pressure 125/75, respiratory rate 20, oxygen saturation 97. HEENT: Head; normocephalic, atraumatic. Eyes; PERRLA. Extraocular muscles intact. Conjunctivae clear. Nose patent. Mucous membranes moist. NECK: Supple. No carotid bruits. No JVD or thyromegaly. CHEST: Bilaterally symmetrical. HEART: S1 and S2 positive. LUNGS: Clear to auscultation. ABDOMEN: Soft. Bowel sounds present. No organomegaly. EXTREMITIES: No edema. No cyanosis. NEUROLOGICAL: The patient is awake and alert. Moving all 4 extremities. No focal deficits. LABORATORY DATA: White blood cells 6.3, hemoglobin 13.2, hematocrit 37.9, platelets 330. Sodium 141, potassium 4.4, BUN 22, creatinine 0.7, glucose 133. Hemoglobin A1c is 5.8. HDL 83. ASSESSMENT AND PLAN: Ms. Shanell Del Valle is a 51-year-old lady with increased BUN, hyperglycemia was admitted with exacerbation of chronic obstructive pulmonary disease, asthma, failed outpatient treatment, has history of chronic obstructive pulmonary disease, she has chronic epigastric pain and the patient would benefit from upper gastrointestinal endoscopy as an outpatient evaluation. Actually, plan was to be inpatient endoscopy, but because of the patient's pulmonary condition, refused to the procedure. Meanwhile, the patient was advised to continue PPI and urged to quit smoking and drinking, back pain, lumbosacral radiculopathy. The patient was advised to followup with primary care physician, GI and pain management. The patient understand the necessity of outpatient followup. Prescription of the medication given. Discharged home. We will followup as an outpatient. Niki Ramirez MD MTDD
== END 2016-12-05 15:24 | disposition home or self-care (01) | DRG 191 ==
LOC: ED 15:56 → ERH 19:21 → 2RSO 20:39 → OBSVTOIN 12-01 14:14 → 5RNO 12-02 13:54
PROVIDERS: ADMIT Internal Medicine; ATTEND Internal Medicine
DX: J44.1 Chronic obstructive pulmonary disease with (acute) exacerbation (principal); J45.901 Unspecified asthma with (acute) exacerbation; K86.1 Other chronic pancreatitis; K29.70 Gastritis, unspecified, without bleeding; K76.89 Other specified diseases of liver; I10 Essential (primary) hypertension; M54.17 Radiculopathy, lumbosacral region; R73.9 Hyperglycemia, unspecified; F17.210 Nicotine dependence, cigarettes, uncomplicated; K21.9 Gastro-esophageal reflux disease without esophagitis; E78.5 Hyperlipidemia, unspecified; K52.9 Noninfective gastroenteritis and colitis, unspecified; Z88.1 Allergy status to other antibiotic agents; Z87.11 Personal history of peptic ulcer disease

== ENCOUNTER 2016-12-13 12:08 | Emergency (ER) | payer BC ==
[2016-12-13 12:09] VITALS: BMI 26.6
[2016-12-13] MEDS ORDERED: Sodium Chloride 0.9% 1,000 ML IV STA (12:23)
--- NOTE | 2016-12-13 12:28 | ED PDOC ---
Arrival/HPI - General Chief Complaint: Abdominal Pain Time Seen by Provider: 12/13/16 12:10 Historian: Patient - History of Present Illness Time/Duration: Other (Months) Symptom Onset: Gradual Symptom Course: Unchanged Quality: Cramping Severity Level: Severe Activities at Onset: Rest Associated Symptoms (Text): 12/13/16 12:24 Patient complains of a many month history of epigastric abdominal pain. There is no nausea vomiting or diarrhea. No radiation of pain. No back pain. No fever or chills. No injury or trauma. Patient was admitted to the hospital approximately 12 days ago for an exacerbation of COPD. At that time she also complained of abdominal pain. She was seen by the pig machine supervisor and also the general surgeon. She had an unrevealing CT scan and ultrasound of the abdomen. She is scheduled for an EGD next week. Reports that she took her last Percocet yesterday. She is requesting a prescription for more Percocet. I discussed with patient that she needs to discuss this with her prescribing physician, and that I would not be prescribing her chronic narcotic pain medication. She is agreeable and understands. She will have outpatient blood work done today to rule out pancreatitis. She will be treated with nonnarcotic pain medication. She reports that her breathing is good at this time. She has been taking her medication. She continues to smoke and she reports she drinks occasionally. She denies using drugs. Past Medical History - Past History Past History: No Previous - Infectious Disease Hx of Infectious Diseases: None - Tetanus Immunization Tetanus Immunization: Unknown - Past Medical History Past Medical History: Non-Contributing - Cardiac Hx Hypertension: Yes - Pulmonary Hx Respiratory Disorders: Yes Hx Asthma: Yes Hx Chronic Obstructive Pulmonary Disease (COPD): Yes - Neurological Hx Dizziness: Yes Hx Migraine: Yes - HEENT Hx HEENT Disorder: Yes (wears eyeglasses) - Renal Hx Renal Disorder: No - Endocrine/Metabolic Hx Endocrine Disorders: No - Hematological/Oncological Hx Blood Disorders: No - Integumentary Hx Dermatological Disorder: No - Musculoskeletal/Rheumatological Hx Musculoskeletal Disorders: Yes Hx Degenerative Joint Disease: Yes Hx Herniated Disk: Yes Hx Unsteady Gait: Yes - Gastrointestinal Hx Gastrointestinal Disorders: Yes Hx Constipation: Yes Hx Pancreatitis: Yes (alcoholic) - Genitourinary/Gynecological Hx Genitourinary Disorders: No Other/Comment: postmenopausal - Psychiatric Hx Depression: Yes Hx Substance Use: Yes - Past Surgical History Past Surgical History: Non-Contributing - Surgical History Hx Appendectomy: Yes Hx Tonsillectomy: Yes Other/Comment: rhinoplasty, breast augmentation - Anesthesia Hx Anesthesia: Yes Hx Anesthesia Reactions: No Hx Malignant Hyperthermia: No - Suicidal Assessment Feels Threatened In Home Enviroment: No Family/Social History - Physician Review Nursing Documentation Reviewed: Yes Family/Social History: Unknown Family HX Smoking Status: Heavy Smoker > 10 Cigarettes Daily Hx Alcohol Use: Yes Amount per day: 6 Hx Substance Use: Yes Substance used: heroin Hx Substance Use Treatment: No Allergies/Home Meds Allergies/Adverse Reactions: Allergies ciprofloxacin [From Cipro] Allergy (Verified 12/13/16 12:22) ANAPHYLAXIS shellfish derived Allergy (Verified 12/13/16 12:22) ANAPHYLAXIS Home Medications: Home Meds Medication Instructions Recorded Confirmed Albuterol Sulfate [Proair Hfa] 0.09 mg IH Q6 12/13/16 12/13/16 Alprazolam [Xanax] 3 mg PO DAILY 12/13/16 12/13/16 Fluticasone/Salmeterol 500/50 1 puff INH BID 12/13/16 12/13/16 [Advair Diskus 500/50] Review of Systems - Physician Review All systems were reviewed & negative as marked: Yes - Review of Systems Constitutional: Normal ENT: Normal Respiratory: Normal Cardiovascular: Normal Gastrointestinal: Abdominal Pain. absent: Constipation, Diarrhea, Nausea, Vomiting, Anorexia, Food Intolerance Genitourinary Female: absent: Dysuria, Frequency, Hematuria Neurological: absent: Headache, Dizziness, Focal Weakness, Facial Droop Physical Exam Vital Signs Temp Pulse Resp BP Pulse Ox 12/13/16 13:24 72 17 132/84 100 12/13/16 12:17 98.3 F 80 16 147/82 99 Temperature: Afebrile Blood Pressure: Normal Pulse: Regular Respiratory Rate: Normal Appearance: Positive for: Well-Appearing, Non-Toxic, Comfortable Pain Distress: None Mental Status: Positive for: Alert and Oriented X 3 - Systems Exam Head: Present: Atraumatic, Normocephalic Pupils: Present: PERRL Extroacular Muscles: Present: EOMI Conjunctiva: Present: Normal Mouth: Present: Moist Mucous Membranes Pharnyx: No: ERYTHEMA, EXUDATE, TONSILS ENLARGED Neck: Present: Normal Range of Motion Respiratory/Chest: Present: Clear to Auscultation, Good Air Exchange. No: Respiratory Distress, Accessory Muscle Use Cardiovascular: Present: Regular Rate and Rhythm, Normal S1, S2. No: Murmurs Abdomen: Present: Tenderness (Mild generalized tenderness with no guarding and no rebound), Normal Bowel Sounds. No: Distention, Peritoneal Signs, Rebound, Guarding Back: Present: Normal Inspection. No: CVA Tenderness, Midline Tenderness, Paraspinal Tenderness Upper Extremity: Present: Normal Inspection. No: Cyanosis, Edema Lower Extremity: Present: Normal Inspection. No: Edema Neurological: Present: GCS=15, CN II-XII Intact, Speech Normal, Motor Func Grossly Intact Skin: Present: Warm, Dry, Normal Color. No: Rashes Psychiatric: Present: Alert, Oriented x 3, Normal Insight, Normal Concentration Medical Decision Making ED Course and Treatment: 12/13/16 12:45 EKG showed normal sinus rhythm rate approximately [address] or T-wave changes 12/13/16 13:19 Patient reports that Toradol does not help her. She is requesting morphine. I discussed with her that I would not be treating her chronic pain with narcotic pain medications. She requested that I call her PMD. A call has been placed to . 12/13/16 13:38 Discussed with who reports that the patient has a painter spring, and she does not want patient to have any narcotics. The patient had Percocet when she was discharged from the hospital. I discussed with the patient and she reports that her painter spring is not available for the next 3 days. I again told her that I would not be treating her chronic pain with narcotic pain medications. She requested that her pig machine supervisor be called, but I informed her that I had given her the option of calling her PMD or pig machine supervisor and the patient chose her PMD. Her pig machine supervisor will not be called at this time as the patient is only trying to get narcotic pain medication. She will be discharged to follow-up with her PMD pig machine supervisor and painter spring. She will be given a prescription for PPI. Follow-up in the ER as needed. - Lab Interpretations Lab Results: 12/13/16 13:07 12/13/16 13:07 Lab Results 12/13/16 13:07: Sodium 140, Potassium 4.4, Chloride 109 H, Carbon Dioxide 24, Anion Gap 11, BUN 20, Creatinine 0.8, Est GFR ( Amer) > 60, Est GFR (Non- Af Amer) > 60, Random Glucose 88, Calcium 9.0, Total Bilirubin 0.4, AST 19, ALT 37, Alkaline Phosphatase 97, Total Protein 6.2, Albumin 3.8, Globulin 2.4, Albumin/Globulin Ratio 1.6, Lipase 151 12/13/16 13:07: WBC 5.4, RBC 4.16, Hgb 12.3, Hct 36.9, MCV 88.7, MCH 29.6, MCHC 33.3, RDW 14.3, Plt Count 265, MPV 8.8, Gran % 43.4 L, Lymph % (Auto) 45.3 H, [place] % (Auto) 9.4 H, Eos % (Auto) 1.7, Baso % (Auto) 0.2, Gran # 2.35, Lymph # 2.5, [place] # 0.5, Eos # 0.1, Baso # 0.01 I have reviewed the lab results: Yes - Medication Orders Current Medication Orders: Discontinued Medications Sodium Chloride (Sodium Chloride 0.9%) 1,000 mls @ 1,000 mls/hr IV .Q1H STA Stop: 12/13/16 13:22 Last Admin: 12/13/16 13:11 Dose: 1,000 mls/hr eMAR Start Stop Document 12/13/16 13:11 [facility] (Rec: 12/13/16 13:11 [facility] [id number]) Intravenous Solution Start Date 12/13/16 Start Time 13:11 End Date 12/13/16 End time 14:11 Total Infusion Time 60 Ketorolac Tromethamine (Toradol) 30 mg IVP STAT STA Stop: 12/13/16 12:24 Last Admin: 12/13/16 13:11 Dose: 30 mg Comments: patient refused MAR Pain Assessment Document 12/13/16 13:11 [facility] (Rec: 12/13/16 13:12 [facility] [id number]) Pain Reassessment Is this a pain reassessment? No IVP Administration Document 12/13/16 13:11 [facility] (Rec: 12/13/16 13:12 [facility] [id number]) Charges for Administration # of IVP Administrations 1 Pantoprazole Sodium (Protonix Inj) 40 mg IVP STAT STA Stop: 12/13/16 12:24 Last Admin: 12/13/16 13:10 Dose: 40 mg IVP Administration Document 12/13/16 13:10 [facility] (Rec: 12/13/16 13:11 [facility] [id number]) Charges for Administration # of IVP Administrations 1 Disposition/Present on Arrival - Present on Arrival Any Indicators Present on Arrival: No History of DVT/PE: No History of Uncontrolled Diabetes: No Urinary Catheter: No History of Decub. Ulcer: No History Surgical Site Infection Following: None - Disposition Have Diagnosis and Disposition been Completed?: Yes Diagnosis: Chronic abdominal pain Disposition: HOME/ ROUTINE Disposition Time: 13:41 Patient Plan: Discharge Condition: GOOD Discharge Instructions (ExitCare): Chronic Abdominal Pain in Children (ED), Abdominal Pain (ED) Additional Instructions: Follow-up with your PMD, pig machine supervisor and painter spring. Follow-up in the ER as needed. Prescriptions: Pantoprazole Sodium [Protonix] 40 mg PO DAILY #20 ect Forms: [employer] ([place]ian)
[2016-12-13 13:23] LABS: ALB/GLOB RATIO 1.6 (1.1-1.8); ALKALINE PHOSPHATASE 97 U/L (38-126); ALT/SGPT 37 U/L (7-56); AST/SGOT 19 U/L (14-36); BILIRUBIN,TOTAL 0.4 mg/dL (0.2-1.3); BLOOD UREA NITROGEN 20 mg/dL (7-21); CARBON DIOXIDE 24 mmol/L (21-33); CHLORIDE 109 mmol/L (98-107); GFR AFRICAN-AMERICAN > 60; GLUCOSE,RANDOM 88 mg/dL (70-110); LIPASE 151 U/L (23-300); POTASSIUM 4.4 mmol/L (3.6-5.0); SODIUM 140 mmol/L (132-148); TOTAL PROTEIN 6.2 g/dL (5.8-8.3)
[2016-12-13 13:25] VITALS: BP 132/84; PULSE 72; RESP 17; O2SAT 100
[2016-12-13 13:25] LABS: BASO # 0.01 K/mm3 (0.0-2.0); BASO % 0.2 % (0.0-3.0); EOS # 0.1 (0.0-0.7); EOS % 1.7 % (1.5-5.0); GRAN # 2.35 (1.4-6.5); GRAN % 43.4 % (50.0-68.0); HEMATOCRIT 36.9 % (36.0-48.0); LYMPH # 2.5 (1.2-3.4); LYMPH % 45.3 % (22.0-35.0); MEAN CELL VOLUME 88.7 fl (80.0-105.0); MEAN CORPUSCULAR HEMOGLOBIN 29.6 pg (25.0-35.0); MEAN CORPUSCULAR HGB CONC 33.3 g/dl (31.0-37.0); MEAN PLATELET VOLUME 8.8 fl (7.0-11.0); MONO # 0.5 (0.1-0.6); MONO % 9.4 % (1.0-6.0); RED CELL DISTRIBUTION WIDTH 14.3 % (11.5-14.5); WHITE BLOOD COUNT 5.4 10^3/ul (4.5-11.0)
[2016-12-13 13:54] VITALS: TEMP 98.8
== END 2016-12-13 13:54 | disposition home or self-care (01) ==
LOC: ED 12:08
DX: G89.29 Other chronic pain (principal); R10.9 Unspecified abdominal pain; F17.210 Nicotine dependence, cigarettes, uncomplicated; I10 Essential (primary) hypertension; J44.1 Chronic obstructive pulmonary disease with (acute) exacerbation
CPT/HCPCS: 80053; 83690; 85025; 96361; 96374; 96375; 99283; C9113; J1885; J7040

== ENCOUNTER 2017-04-19 08:26 | Day surgery (SDC) | payer BC, MEDICAID ==
[2017-04-19 09:13] VITALS: TEMP 98; O2SAT 100
[2017-04-19] MEDS ORDERED: Propofol 10 mg/ml Inj (20 ML) ONE ×2 (09:57→10:34)
[2017-04-19] MEDS ORDERED: Sodium Chloride 0.9% 1,000 ML IV SCH (11:00)
[2017-04-19 11:35] VITALS: BP 138/76; PULSE 76; RESP 17
== END 2017-04-19 12:55 | disposition home or self-care (01) ==
LOC: ENDO 08:26
PROVIDERS: ATTEND Internal Medicine
DX: K25.9 Gastric ulcer, unspecified as acute or chronic, without hemorrhage or perforation (principal); K76.6 Portal hypertension; K31.89 Other diseases of stomach and duodenum; K29.80 Duodenitis without bleeding; K29.50 Unspecified chronic gastritis without bleeding; D12.5 Benign neoplasm of sigmoid colon; D12.2 Benign neoplasm of ascending colon; Q43.8 Other specified congenital malformations of intestine; K64.8 Other hemorrhoids; K59.09 Other constipation; K70.30 Alcoholic cirrhosis of liver without ascites; J44.9 Chronic obstructive pulmonary disease, unspecified; D64.9 Anemia, unspecified; I10 Essential (primary) hypertension; Z98.51 Tubal ligation status; Z87.81 Personal history of (healed) traumatic fracture; Z83.3 Family history of diabetes mellitus; Z82.49 Family history of ischemic heart disease and other diseases of the circulatory system; F17.210 Nicotine dependence, cigarettes, uncomplicated; Z87.19 Personal history of other diseases of the digestive system
CPT/HCPCS: 43239; 45380; 88305; 88342; J2001; J2704; J3010; J7030; J7040

== ENCOUNTER 2017-07-05 10:07 | Day surgery (SDC) | payer BC, MEDICAID ==
[2017-06-28 09:50] VITALS: BMI 24.3
[2017-07-05] MEDS ORDERED: Propofol 10 mg/ml Inj (20 ML) ONE (10:40)
[2017-07-05] MEDS ORDERED: Sodium Chloride 0.9% 1,000 ML IV SCH (11:00)
[2017-07-05 11:36] VITALS: RESP 16
[2017-07-05 13:08] VITALS: BP 122/45; PULSE 65; TEMP 97.5; O2SAT 96
== END 2017-07-05 12:18 | disposition home or self-care (01) ==
LOC: ENDO 10:07
PROVIDERS: ATTEND Internal Medicine
DX: K29.70 Gastritis, unspecified, without bleeding (principal)
CPT/HCPCS: 43235; J2704; J7040 ×2

== ENCOUNTER 2017-10-05 14:44 | Emergency (ER) | payer BC, MEDICAID ==
[2017-10-05 14:44] VITALS: BMI 24.3
[2017-10-05 15:15] VITALS: BP 144/77; PULSE 100; RESP 18; TEMP 98.8; O2SAT 96
[2017-10-05] MEDS ORDERED: Sodium Chloride 0.9% 1,000 ML IV STA (15:30)
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
[2017-10-05] MEDS ORDERED: Iohexol 350 MG/100 ML VIAL ONE (17:59)
[2017-10-05] MEDS ORDERED: Iohexol 240 (50 ml) ONE (18:02)
[2017-10-05 18:09] LABS: BASO # 0.02 K/mm3 (0.0-2.0); BASO % 0.3 % (0.0-3.0); EOS # 0.1 (0.0-0.7); EOS % 1.2 % (1.5-5.0); GRAN # 3.73 (1.4-6.5); GRAN % 51.1 % (50.0-68.0); HEMOGLOBIN 9.6 g/dL (12.0-16.0); LYMPH # 2.7 (1.2-3.4); LYMPH % 37.1 % (22.0-35.0); MEAN CELL VOLUME 88.8 fl (80.0-105.0); MEAN CORPUSCULAR HEMOGLOBIN 30.7 pg (25.0-35.0); MEAN CORPUSCULAR HGB CONC 34.5 g/dl (31.0-37.0); MEAN PLATELET VOLUME 8.4 fl (7.0-11.0); MONO # 0.8 (0.1-0.6); MONO % 10.3 % (1.0-6.0); RBC 3.13 10^6/uL (3.5-6.1); RED CELL DISTRIBUTION WIDTH 15.9 % (11.5-14.5); WHITE BLOOD COUNT 7.3 10^3/ul (4.5-11.0)
[2017-10-05 18:10] LABS: URINE BILIRUBIN NEGATIVE (NEGATIVE); URINE BLOOD NEGATIVE (NEGATIVE); URINE GLUCOSE (UA) NEGATIVE (NEGATIVE); URINE LEUKOCYTE ESTERASE NEGATIVE Leu/uL (NEGATIVE); URINE PROTEIN NEGATIVE mg/dL (<30 mg/dL); URINE UROBILINOGEN 0.2 E.U./dL (<1 E.U./dL)
[2017-10-05 18:15] LABS: URINE APPEARANCE CLEAR (CLEAR); URINE COLOR STRAW (YELLOW)
[2017-10-05 18:20] LABS: ALB/GLOB RATIO 1.2 (1.1-1.8); ALBUMIN 3.3 g/dL (3.0-4.8); ALT/SGPT 49 U/L (7-56); AST/SGOT 33 U/L (14-36); BLOOD UREA NITROGEN 4 mg/dL (7-21); CALCIUM 8.7 mg/dL (8.4-10.5); GFR AFRICAN-AMERICAN > 60; GFR NON-AFRICAN AMERICAN > 60; INR 0.97; PARTIAL THROMBOPLASTIN TIME 32.3 Seconds (25.1-36.5)
[2017-10-05 18:26] LABS: LIPASE 3850 U/L (23-300)
[2017-10-05 18:34] LABS: OPIATES, UR NEGATIVE (NEGATIVE)
[2017-10-05 18:35] LABS: BARBITURATES, UR NEGATIVE (NEGATIVE); BENZODIAZEPINES, UR POSITIVE (NEGATIVE); PHENCYCLIDINE, UR NEGATIVE (NEGATIVE)
== END 2017-10-05 18:25 | disposition left against medical advice (07) ==
LOC: ED 14:44
DX: F10.10 Alcohol abuse, uncomplicated (principal); R10.13 Epigastric pain; F17.210 Nicotine dependence, cigarettes, uncomplicated; I10 Essential (primary) hypertension
CPT/HCPCS: 80053; 81003; 83690; 83735; 85025; 85378; 85610; 85730; 99283; G0480; Q9966; Q9967